=== PATIENT | female | born 1970 | race Two or more races ===

== ENCOUNTER 2020-08-30 05:40 | Day surgery (SDC) | payer MEDICAID ==
[~2020-08-30] VITALS: Ht 162.6 cm; Wt 83.9 kg
[~2020-08-30 05:40] MED LIST: ATOR10TA69 PO; HYDR25TA PO; MEDR10TA11 PO; METF-414 PO; TRAN650T5 PO
[2020-08-30 06:35] LABS: BASOPHILS % 0.4 % (0.0-2.0); EOSINOPHILS % 3.6 % (0.0-5.0); HEMATOCRIT. 38.9 % (36.0-48.0); HEMOGLOBIN. 13.1 g/dL (12.0-16.0); LYMPHOCYTES % 35.8 % (20.0-50.0); MEAN CORPUSCULAR HEMOGLOBIN 30.6 pg (28.0-32.0); MEAN CORPUSCULAR VOLUME 90.7 fL (81.0-99.0); MEAN PLATELET VOLUME 9.3 fl (7.4-10.4); MONOCYTES % 9.1 % (2.0-8.0); NEUTROPHILS % 51.1 % (40.0-76.0); PLATELET 198 x1000/uL (130-400); RED BLOOD CELL COUNT 4.29 mill/uL (4.2-5.4); RED CELL DISTRIBUTION WIDTH 12.9 % (11.6-14.6)
[2020-08-30] MEDS ORDERED: VASOPRESSIN 20 UNIT/ML 1ML ONE (06:40)
[2020-08-30] MEDS ORDERED: SKIN ADHESIVE 0.7 GM EA TOP ONE (06:40)
[2020-08-30] MEDS ORDERED: BUPIVACAINE HCL/PF 0.5% (5MG/ML) 10ML ONE (06:40)
[2020-08-30 06:41] LABS: CHLORIDE 105 mEq/L (98-107)
[2020-08-30 06:48] LABS: PARTIAL THROMBOPLASTIN TIME 28.2 sec (23.4-31.0); PROTHROMBIN TIME 10.7 sec (9.6-11.0)
[2020-08-30 07:02] LABS: CLARITY URINE CLEAR (CLEAR); COLOR URINE YELLOW (YELLOW); KETONES URINE NEGATIVE (NEGATIVE); LEUKOCYTE ESTERASE URINE NEGATIVE (NEGATIVE); NITRITE URINE NEGATIVE (NEGATIVE); OCCULT BLOOD URINE NEGATIVE (NEGATIVE); PH URINE 5.5 (4.5-8.0); PROTEIN URINE NEGATIVE (NEGATIVE); SPECIFIC GRAVITY URINE 1.029 (1.005-1.030); UROBILINOGEN URINE 0.2 E.U./dL (0.2-1.0)
[2020-08-30 07:10] LABS: UCG SCREEN NEGATIVE
[2020-08-30] MEDS: SODIUM CHLORIDE 0.9% 1,000 ML IV SCH (07:25)
[2020-08-30] MEDS ORDERED: MIDAZOLAM HCL 2 MG/2 ML VIAL ONE (07:44)
[2020-08-30] MEDS ORDERED: ROCURONIUM BROMIDE 10MG/ML VIAL 5ML IV ONE (07:44)
[2020-08-30] MEDS ORDERED: FENTANYL CITRATE/PF 50MCG/ML 5ML VIAL ONE (07:44)
[2020-08-30] MEDS ORDERED: PROPOFOL 200MG/20ML VIAL IV ONE (07:44)
[2020-08-30] MEDS ORDERED: ONDANSETRON HCL 4MG/2ML INJ ONE (07:45)
[2020-08-30] MEDS ORDERED: SUCCINYLCHOLINE CHLORIDE 200MG/10ML IV ONE (07:45)
[2020-08-30] MEDS ORDERED: LIDOCAINE HCL 2% JELLY 5ML ONE (07:45)
[2020-08-30] MEDS ORDERED: LIDOCAINE HCL 1% 20ML VIAL (Pyxis) INJ ONE (07:45)
[2020-08-30] MEDS ORDERED: METOCLOPRAMIDE HCL 10MG/2ML VIAL ONE (07:45)
[2020-08-30] MEDS ORDERED: GLYCOPYRROLATE 0.2 MG/ML 2ML VIAL ONE (07:52)
[2020-08-30] MEDS ORDERED: NEOSTIGMINE METHYLSULFATE 1MG/ML 10 ML VIAL ONE (07:52)
[2020-08-30] MEDS ORDERED: PHENYLEPHRINE HCL 10 MG/ML 1ML (IV VIAL) IV ONE (07:53)
[2020-08-30] MEDS ORDERED: CEFAZOLIN SODIUM 1000MG/VIAL ONE ×2 (07:53→08:59)
[2020-08-30] MEDS ORDERED: STERILE WATER FOR INJECTION 10ML VIAL ONE (07:53)
[2020-08-30] MEDS ORDERED: PETROLATUM,WHITE OPHTH OINT 3.5GM ONE (08:43)
[2020-08-30] MEDS ORDERED: LABETALOL HCL 5MG/ML VIAL 20ML IV ONE (09:25)
[2020-08-30] MEDS ORDERED: FENTANYL CITRATE/PF 50MCG/ML 2ML VIAL ONE (11:14)
[2020-08-30] MEDS ORDERED: ONDANSETRON HCL 4MG/2ML INJ IV PRN (11:30)
[2020-08-30] MEDS ORDERED: MEPERIDINE HCL/PF 25MG/ML CPJ IV PRN (11:30)
[2020-08-30] MEDS ORDERED: MORPHINE SULFATE 2 MG/ML CPJ (NOT FOR IM USE) IV PRN (11:30)
[2020-08-30] MEDS ORDERED: SODIUM CHLORIDE 0.9% 1,000 ML IV ONE (11:30)
[2020-08-30] MEDS: HYDROMORPHONE HCL/PF 2MG/ML CPJ IV PRN ×3 (12:52→13:55)
[2020-08-30] MEDS ORDERED: HYDROCODONE/ACETAMINOPHEN 5/325MG TABLET PO PRN (13:15)
[2020-08-30] MEDS ORDERED: HYDROCODONE/ACETAMINOPHEN 10/325MG TABLET PO NR (16:31)
[2020-08-30 16:49] VITALS: BP 125/76
== END 2020-08-30 17:40 | disposition home or self-care (01) ==
LOC: OR 05:40
PROVIDERS: ATTEND Obstetrics & Gynecology
DX: D25.9 Leiomyoma of uterus, unspecified (principal); N92.5 Other specified irregular menstruation; R10.2 Pelvic and perineal pain
CPT/HCPCS: 36415; 58546; 80048; 81003; 81025; 82962; 85025; 85610; 85730; 86850; 86900; 86901; 88305; 93005; A4216; J0330; J0690; J1170; J2175; J2250; J2370; J2405; J2704; J2710; J2765; J3010; J3490; S2900